=== PATIENT | male | born 1980 | race Two or more races ===

== ENCOUNTER 2022-12-06 11:34 | Inpatient (IN) | payer OTHER ==
[~2022-12-06] VITALS: Ht 188 cm; Wt 137.7 kg
[2022-12-06 17:27] LABS: Basophils # (auto) 0.1 10 ^3/uL (0-0.2); Basophils % (auto) 1.3 % (0.0-2.0); Eosinophils # (auto) 0.2 10 ^3/uL (0-0.8); Eosinophils % (auto) 1.9 % (0.0-7.0); Hematocrit 47.5 % (41.0-53.0); Hemoglobin 16.2 g/dL (13.5-17.5); Lymphocytes # (auto) 2.9 10 ^3/uL (0.4-5.4); Mean Corpuscular Hemoglobin 29.7 pg (28.0-32.0); Mean Corpuscular Hgb Conc. 34.1 g/dL (32.0-36.0); Monocytes % (auto) 9.2 % (0.0-12.0); Neutrophils # (auto) 6.3 10 ^3/uL (1.6-8.6); Neutrophils % (auto) 59.6 % (37.0-80.0); Nucleated Red Blood Cells % 0.5 %; Red Blood Cells 5.46 10^6/uL (4.5-5.90); Red Cell Distribution Width 14.9 % (11.8-14.3); White Blood Cell 10.5 10^3/uL (4.4-10.8)
[2022-12-06 17:45] LABS: Albumin 3.9 g/dL (3.4-5.0); BUN/Creatinine Ratio 23.8 (10.0-20.0); Calcium 10.3 mg/dL (8.5-10.1)
[2022-12-06 17:48] LABS: Bilirubin, Total 0.9 mg/dL (0.2-1.0); Total Protein 8.2 g/dL (6.4-8.2)
[2022-12-06 17:56] LABS: INR 1.07 (0.9-1.15); Partial Thromboplastin Time 29.7 sec (24.6-33.4)
[2022-12-06] MEDS ORDERED: MORPHINE SULFATE INJ 2 MG/ml SYRG IV PRN (18:30)
[2022-12-06] MEDS ORDERED: HEPARIN SODIUM (PORCINE) 5000 UNITS/ML 1ML VIAL IV ONE (18:30)
[2022-12-06] MEDS ORDERED: HYDROcodone-ACET 5/325MG TAB PO PRN (18:30)
[2022-12-06] MEDS ORDERED: ACETAMINOPHEN 325 MG TAB PO PRN (18:30)
[2022-12-06] MEDS ORDERED: PANTOPRAZOLE 40 MG/10 ML VIAL INJ IV ONE (18:45)
[2022-12-06 19:25] LABS: Cholesterol 211 mg/dL (< 200)
[2022-12-06 19:28] LABS: HDL Cholesterol 54 mg/dL (40-59); LDL Cholesterol 153 mg/dL (< 100); Triglycerides 86 mg/dL (< 150)
[2022-12-07] MEDS: HEPARIN DRIP/D5W 100UNITS/ML 250 ML IV SCH ×2 (00:52→07:47)
[2022-12-07 06:36] LABS: Basophils # (auto) 0.1 10 ^3/uL (0-0.2); Basophils % (auto) 2.1 % (0.0-2.0); Eosinophils # (auto) 0.3 10 ^3/uL (0-0.8); Hemoglobin 15.1 g/dL (13.5-17.5); Lymphocytes # (auto) 1.6 10 ^3/uL (0.4-5.4); Lymphocytes % (auto) 24.3 % (10.0-50.0); Mean Corpuscular Hemoglobin 30.1 pg (28.0-32.0); Mean Corpuscular Hgb Conc. 34.4 g/dL (32.0-36.0); Mean Corpuscular Volume 87.6 fL (80.0-100.0); Monocytes # (auto) 0.7 10 ^3/uL (0-1.3); Monocytes % (auto) 10.4 % (0.0-12.0); Neutrophils # (auto) 3.9 10 ^3/uL (1.6-8.6); Neutrophils % (auto) 59.2 % (37.0-80.0); Nucleated Red Blood Cells % 0.7 %; Red Blood Cells 5.02 10^6/uL (4.5-5.90); Red Cell Distribution Width 14.6 % (11.8-14.3); White Blood Cell 6.6 10^3/uL (4.4-10.8)
[2022-12-07] MEDS ORDERED: HEPARIN SODIUM (PORCINE) 5000 UNITS/ML 1ML VIAL IV ONE (07:00)
[2022-12-07 07:07] LABS: Potassium 4.1 mmol/L (3.5-5.1)
[2022-12-07 07:18] LABS: BUN/Creatinine Ratio 27.5 (10.0-20.0); Bilirubin, Total 0.9 mg/dL (0.2-1.0); Calcium 9.2 mg/dL (8.5-10.1); Total Protein 6.5 g/dL (6.4-8.2)
[2022-12-07 07:48] LABS: INR 1.09 (0.9-1.15); Partial Thromboplastin Time 36.1 sec (24.6-33.4)
[2022-12-07] MEDS ORDERED: HEPARIN DRIP/D5W 100UNITS/ML 250 ML IV SCH ×2 (07:55→18:30)
[2022-12-07 09:00] VITALS: BP 107/71
[2022-12-07 10:31] VITALS: BP 107/71
[2022-12-07] MEDS ORDERED: TACR1CAP4 PO (10:37)
[2022-12-07] MEDS ORDERED: MYCO250C PO (10:37)
[2022-12-07] MEDS ORDERED: TACR0.5C3 PO (10:37)
[2022-12-07] MEDS ORDERED: APIX2.5T PO (10:37)
[2022-12-07] MEDS: PANTOPRAZOLE 40 MG/10 ML VIAL INJ IV SCH (12:01)
[2022-12-07 12:15] LABS: Urine Bacteria NONE SEEN /hpf (None Seen); Urine Blood TRACE /uL (Negative); Urine Specific Gravity 1.011 (1.001-1.035); Urine WBC <1 /hpf (0 - 3)
[2022-12-07 13:00] VITALS: BP 125/79
[2022-12-07] MEDS ORDERED: TACR200T PO (14:18)
[2022-12-07 17:00] VITALS: BP 108/64
[2022-12-07 17:04] LABS: INR 1.12 (0.9-1.15)
[2022-12-07 17:09] LABS: Partial Thromboplastin Time > 139.0 sec (24.6-33.4)
[2022-12-07] MEDS ORDERED: TACROLIMUS 1 MG PO SCH (19:00)
[2022-12-07] MEDS: MYCOPHENOLATE 250 MG CAP PO SCH (19:02)
[2022-12-07 22:00] VITALS: BP 103/61
[2022-12-07] MEDS ORDERED: MYCOPHENOLATE 250 MG CAP PO SCH (22:00)
[2022-12-08 01:20] LABS: Partial Thromboplastin Time > 139.0 sec (24.6-33.4)
[2022-12-08] MEDS ORDERED: HEPARIN DRIP/D5W 100UNITS/ML 250 ML IV SCH ×2 (02:30→08:30)
[2022-12-08 05:00] VITALS: BP 115/76
[2022-12-08] MEDS: MYCOPHENOLATE 250 MG CAP PO SCH ×2 (06:50→12:55)
[2022-12-08] MEDS ORDERED: TACROLIMUS 0.75 MG PO SCH (07:00)
[2022-12-08 07:36] LABS: Basophils # (auto) 0 10 ^3/uL (0-0.2); Basophils % (auto) 0.4 % (0.0-2.0); Eosinophils # (auto) 0.2 10 ^3/uL (0-0.8); Eosinophils % (auto) 3.5 % (0.0-7.0); Hematocrit 45.3 % (41.0-53.0); Lymphocytes # (auto) 1.7 10 ^3/uL (0.4-5.4); Lymphocytes % (auto) 27.9 % (10.0-50.0); Mean Corpuscular Hemoglobin 29.8 pg (28.0-32.0); Mean Corpuscular Volume 90.2 fL (80.0-100.0); Monocytes # (auto) 0.6 10 ^3/uL (0-1.3); Monocytes % (auto) 9.9 % (0.0-12.0); Neutrophils # (auto) 3.6 10 ^3/uL (1.6-8.6); Neutrophils % (auto) 58.3 % (37.0-80.0); Nucleated Red Blood Cells % 0.3 %; Red Blood Cells 5.02 10^6/uL (4.5-5.90); Red Cell Distribution Width 14.8 % (11.8-14.3); White Blood Cell 6.2 10^3/uL (4.4-10.8)
[2022-12-08 08:00] VITALS: BP 102/66
[2022-12-08 08:07] LABS: INR 1.09 (0.9-1.15)
[2022-12-08 08:15] LABS: Partial Thromboplastin Time > 139.0 sec (24.6-33.4)
[2022-12-08 09:00] VITALS: BP 102/66
[2022-12-08] MEDS ORDERED: PATIENTS OWN MEDICATION PO SCH (10:00)
[2022-12-08] MEDS: PANTOPRAZOLE 40 MG/10 ML VIAL INJ IV SCH (10:10)
[2022-12-08 13:00] VITALS: BP 111/68
[2022-12-08] MEDS ORDERED: APIX5TAB PO (14:43)
[2022-12-08 16:25] VITALS: BP 111/68
[2022-12-08 17:00] VITALS: BP 107/61
[2022-12-10 14:34] LABS: Hepatitis C Antibody Negative (Negative)
== END 2022-12-08 17:38 | disposition home or self-care (01) | DRG 301 ==
LOC: ER 11:34 → OVERFLOW 18:27 → EAST 12-07 08:58
PROVIDERS: ADMIT Registered Nurse; ATTEND Nurse Practitioner Acute Care
DX: I82.412 Acute embolism and thrombosis of left femoral vein (principal); I82.432 Acute embolism and thrombosis of left popliteal vein; E78.5 Hyperlipidemia, unspecified; E66.01 Morbid (severe) obesity due to excess calories; Z20.822 Contact with and (suspected) exposure to COVID-19; E03.9 Hypothyroidism, unspecified; Z86.718 Personal history of other venous thrombosis and embolism; Z83.3 Family history of diabetes mellitus; Z79.01 Long term (current) use of anticoagulants; Z68.39 Body mass index [BMI] 39.0-39.9, adult
CPT/HCPCS: 36415; 73630; 78582; 80053; 80061; 81001; 83036; 84443; 84484; 85025; 85610; 85730; 86803; 87340; 87426; 93306; 93970; 96365; 96375; 96376; C9113; G0378; J7517